=== PATIENT | female | born 1980 | race Caucasian/White ===

== ENCOUNTER 2017-01-08 16:03 | Emergency (ER) | payer OTHER ==
[~2017-01-08] VITALS: Ht 165.1 cm; Wt 74.0 kg
[~2017-01-08 16:03] MED LIST: GLIP5TAB13 PO; MTF1000T PO
[2017-01-08 16:07] VITALS: Ht 165.1 cm; Wt 74.0 kg
[2017-01-08] MEDS ORDERED: AMO500 PO (16:24)
--- NOTE | 2017-01-08 16:31 | ERD ---
ER Documentation Chief Complaint Date/Time DATE: 01/08/17 TIME: 16:27 Chief Complaint Complain sof a sore rhroat x 3 days HPI Patient is a 36-year-old female who thinks she may be getting strep throat as she has had it before. She states that of these symptoms feel similar. She states she has had 3 days of sore throat with associated body aches and chills. Unsure of fever. Admits to nausea no vomiting. No diarrhea. She has been taking Tylenol to control her body aches. She is tolerating oral intake. ROS All systems reviewed and are negative except as per history of present illness. Medications Home Meds Active Scripts Amoxicillin* (Amoxicillin*) 500 Mg Cap, 500 MG PO BID for 7 Days, CAP Prov:ИРИНА XAVIER PA-C 01/08/17 Reported Medications Glipizide* (Glipizide*) 5 Mg Tablet, 1 PO QDAY 01/09/13 Metformin* (Glucophage*) 1,000 Mg Tablet, 1 PO QDAY 01/09/13 Allergies Allergies: Coded Allergies: No Known Allergy (Unverified , 01/08/17) PMhx/Soc History of Surgery: No Hx Miscellaneous Medical Probl: Yes (DIABETES ) Hx Alcohol Use: Yes Hx Substance Use: No Hx Tobacco Use: No Smoking Status: Never smoker FmHx Family History: No diabetes Physical Exam Vitals Vital Signs Date Time Temp Pulse Resp B/P Pulse Ox O2 Delivery O2 Flow Rate FiO2 01/08/17 16:07 98.6 111 20 114/74 97 Physical Exam INITIAL VITAL SIGNS: Reviewed by me GENERAL: Awake, alert and oriented x 4, well appearing, nontoxic, speaking in full sentences. No acute distress HEAD: Atraumatic EAR: No tenderness over the mastoids bilaterally. No exudates in the canals. TMs nonerythematous. NOSE: Normal nose. THROAT: Mild tonsillar erythema and edema, no exudates, uvula midline, no kissing tonsils NECK: Supple. No masses. Full range of motion. No meningismus. No midline tenderness. RESPIRATORY: Clear to auscultation bilaterally. Symmetric chest wall rise. No wheezing or rales. No accessory muscle use. CV: Regular rate and rhythm. No murmurs, rubs, or gallops. Procedures/MDM 36-year-old female presents with sore throat. She is afebrile but tachycardic at 111. He does have red swollen tonsils. She was given a prescription for amoxicillin. I recommend she continue to take Tylenol and/or Motrin at home for pain and fever control. Patient counseled regarding my diagnostic impression and care plan. Prior to discharge all questions answered. Pt agrees with treatment plan and understands strict return precautions. Pt is instructed to follow up with primary care provider within 24-48 hours. Precautionary instructions provided including instructions to return to the ER if not improving or for any worsening or changing symptoms or concerns. Departure Diagnosis: Primary Impression: Pharyngitis Condition: Stable Patient Instructions: Pharyngitis, Strep (Presumed) Additional Instructions: Call your primary care doctor TOMORROW for an appointment during the next 1-2 days.See the doctor sooner or return here if your condition worsens before your appointment time. ИРИНА XAVIER PA-C Jan 08, 2017 16:31
== END 2017-01-08 16:34 | disposition home or self-care (01) ==
LOC: FTE 16:03
DX: J02.9 Acute pharyngitis, unspecified (principal); E11.9 Type 2 diabetes mellitus without complications; Z79.84 Long term (current) use of oral hypoglycemic drugs
CPT/HCPCS: 99283

== ENCOUNTER 2017-01-13 19:13 | Emergency (ER) | payer OTHER ==
[~2017-01-13] VITALS: Ht 160 cm; Wt 75.0 kg
[~2017-01-13 19:13] MED LIST changes: +AMOX500C2 PO
[2017-01-13 19:19] VITALS: Ht 160 cm; Wt 75.0 kg
--- NOTE | 2017-01-13 21:25 | RADRPT ---
PROCEDURE: XR Chest. CLINICAL INDICATION: Cough. TECHNIQUE: Single frontal view of the chest was obtained COMPARISON: 01/09/2013. FINDINGS: The heart and mediastinum are within normal limits. The lungs are clear. There is no pleural effusion or pneumothorax. IMPRESSION: No acute disease. RPTAT: [facility] Physician Martha Date Time Electronically viewed and signed by López Aponte Physician on 01/13/2017 21:25 RS/
[2017-01-13] MEDS ORDERED: BENZ200C43 PO (21:33)
--- NOTE | 2017-01-22 17:22 | ERD ---
ER Documentation Chief Complaint Date/Time DATE: 01/22/17 TIME: 17:15 Chief Complaint Pt reports nasal congestion HPI This patient is a 36-year-old female presenting to the emergency department with complaints of chest pressure, cough, intermittent pain reported. She also reports nasal congestion. Her chest is aching in quality. She took NyQuil which slightly alleviated symptoms. She denies fevers, she is currently taking amoxicillin. ROS All systems reviewed and are negative except as per history of present illness. Medications Home Meds Active Scripts Benzonatate* (Benzonatate*) 200 Mg Capsule, 200 MG PO TID Y for COUGH, #20 CAP Prov:VERÓNICA MAZARIEGOS PA-C 01/13/17 Amoxicillin* (Amoxicillin*) 500 Mg Cap, 500 MG PO BID for 7 Days, CAP Prov:ИРИНА XAVIER PA-C 01/08/17 Reported Medications Glipizide* (Glipizide*) 5 Mg Tablet, 1 PO QDAY 01/09/13 Metformin* (Glucophage*) 1,000 Mg Tablet, 1 PO QDAY 01/09/13 Allergies Allergies: Coded Allergies: No Known Allergy (Unverified , 01/08/17) PMhx/Soc History of Surgery: No Hx Miscellaneous Medical Probl: Yes (DIABETES ) Hx Alcohol Use: Yes Hx Substance Use: No Hx Tobacco Use: No Smoking Status: Light tobacco smoker Physical Exam Physical Exam Const: Nontoxic, well-appearing female in no acute distress. Head: Atraumatic Eyes: Normal Conjunctiva ENT: Normal External Ears, Nose and Mouth. Neck: Full range of motion..~ No meningismus. Resp: Clear to auscultation bilaterally Cardio: Regular rate and rhythm, no murmurs Abd: Soft, non tender, non distended. Normal bowel sounds Skin: No petechiae or rashes Back: No midline or flank tenderness Ext: No cyanosis, or edema Neur: Awake and alert Psych: Normal Mood and Affect Procedures/MDM 36-year-old female presents to the emergency department with complaints of chest pressure and cough. I have low suspicion for acute coronary syndrome. Chest x-ray was negative for acute findings. The patient is already on amoxicillin and may continue taking this medication. Her symptoms are most likely secondary to a viral upper respiratory infection. She is given a prescription for benzonatate. Strict ER return precautions were discussed. Close follow-up with primary care physician was advised. PROCEDURE: XR Chest. CLINICAL INDICATION: Cough. TECHNIQUE: Single frontal view of the chest was obtained COMPARISON: 01/09/2013. FINDINGS: The heart and mediastinum are within normal limits. The lungs are clear. There is no pleural effusion or pneumothorax. IMPRESSION: No acute disease. RPTAT: [facility] Physician Martha Date Time Electronically viewed and signed by López Aponte Physician on 01/13/2017 21:25 Departure Diagnosis: Primary Impression: Cough Condition: Fair Patient Instructions: Cough, Chronic, Uncertain Cause, (Adult) Additional Instructions: Follow up with your PCP within the next 1-3 days for a repeat evaluation. If you require a referral to a specialist, your Primary Care Provider may be able to provide this for you. In most patient cases, a referral is not required. If you have further questions regarding this matter, please ask your Primary Care Provider. Return the the emergency department immediately if symptoms worsen or change. If you have any questions regarding medications, ask your pharmacist or us before you leave. If any adverse reactions, occur while taking your medications, discontinue the treatment and return to the emergency department immediately. If any new or worsening symptoms, uncontrolled fevers, or other unexplained symptoms occur, return to the emergency department immediately. Take your medications as directed, and complete the entire course of treatment. VERÓNICA MAZARIEGOS PA-C Jan 22, 2017 17:22
== END 2017-01-13 22:13 | disposition home or self-care (01) ==
LOC: FTE 19:13
DX: R05 Cough (principal); E11.9 Type 2 diabetes mellitus without complications; F17.210 Nicotine dependence, cigarettes, uncomplicated; Z79.84 Long term (current) use of oral hypoglycemic drugs
CPT/HCPCS: 71010; Z7502

== ENCOUNTER 2017-02-04 18:51 | Emergency (ER) | payer OTHER ==
[~2017-02-04] VITALS: Ht 160 cm; Wt 75.5 kg
[~2017-02-04 18:51] MED LIST changes: +BENZ200C43 PO
[2017-02-04 18:55] VITALS: Ht 160 cm; Wt 75.5 kg
[2017-02-04] MEDS ORDERED: AMOX500C2 PO (19:57)
[2017-02-04] MEDS ORDERED: HYDR-906 PO (19:57)
--- NOTE | 2017-02-04 20:03 | ERD ---
ER Documentation Chief Complaint Date/Time DATE: 02/04/17 TIME: 20:00 Chief Complaint toothache HPI Patient is a 36-year-old female with a past medical history of diabetes who presents to the ED with left tooth pain 1 week. She states that last week there was some drainage from the tooth however she states that it resolved. She states that yesterday she started to develop tooth pain and would like antibiotics. She states that she is planning on going to the dentist next week. She denies fever or chills, difficulty breathing or swallowing. No other complaints. ROS All systems reviewed and are negative except as per history of present illness. Medications Home Meds Active Scripts Hydrocodone/Acetaminophen ([place] 5-325 Tablet) 1 Each Tablet, 1 TAB PO Q6H Y for PAIN, #5 TAB Prov:GENE ESCOBEDO PA-C 02/04/17 Amoxicillin* (Amoxicillin*) 500 Mg Cap, 500 MG PO TID for 7 Days, CAP Prov:GENE ESCOBEDO PA-C 02/04/17 Benzonatate* (Benzonatate*) 200 Mg Capsule, 200 MG PO TID Y for COUGH, #20 CAP Prov:VERÓNICA MAZARIEGOS PA-C 01/13/17 Amoxicillin* (Amoxicillin*) 500 Mg Cap, 500 MG PO BID for 7 Days, CAP Prov:ИРИНА XAVIER PA-C 01/08/17 Reported Medications Glipizide* (Glipizide*) 5 Mg Tablet, 1 PO QDAY 01/09/13 Metformin* (Glucophage*) 1,000 Mg Tablet, 1 PO QDAY 01/09/13 Allergies Allergies: Coded Allergies: No Known Allergy (Unverified , 01/08/17) PMhx/Soc History of Surgery: Yes (cholecystectomy) Anesthesia Reaction: No Hx Neurological Disorder: No Hx Respiratory Disorders: No Hx Cardiac Disorders: No Hx Psychiatric Problems: No Hx Miscellaneous Medical Probl: Yes (DIABETES ) Hx Alcohol Use: Yes (social) Hx Substance Use: No Hx Tobacco Use: No FmHx Family History: No coronary disease, No diabetes, No other Physical Exam Vitals Vital Signs Date Time Temp Pulse Resp B/P Pulse Ox O2 Delivery O2 Flow Rate FiO2 02/04/17 18:55 97.4 99 20 132/80 98 Physical Exam GENERAL: Well-developed, well-nourished female Appears in no acute distress. HEAD: Normocephalic, atraumatic. EYES: Pupils are equally reactive bilaterally. EOMs grossly intact. No conjunctival erythema. ENT: Moist mucous membranes. No uvula deviation. No kissing tonsils. No exudates. no signs of dental abscess NECK: Supple. No lymphadenopathy or thyromegaly. No meningismus. negative kernig. negative brudinski. LUNG: Clear to auscultation bilaterally. No rhonchi, wheezing, rales or coarse breath sounds. HEART: Regular rate and rhythm. No murmurs, rubs or gallops. BACK: No midline tenderness. Extremities: Equal pulses bilaterally. No peripheral clubbing, cyanosis or edema. No unilateral leg swelling. NEUROLOGIC: Alert and oriented. Moving all four extremities. 5/5 strength in all extremities. Normal speech. Steady gait. SKIN: Normal color. Warm and dry. No rashes or lesions. Capillary refill < 2 seconds Procedures/MDM ER COURSE: I kept the patient and/or family informed of laboratory and diagnostic imaging results throughout the emergency room course. MEDICAL DECISION MAKING: This is a 36 year old female who presents with dental pain x 1 day. Vital signs were reviewed. Patient is afebrile. Patient is not hypoxic. Low suspicion for dental abscess. Likely dental pain. Not toxic or ill appearing. DISCHARGE: At this time, patient is stable for discharge and outpatient management with no new complaints during the ER course. Patient was sent home with amoxicillin and [place] and to follow-up with dentist. Information to home center given to patient. Patient will be discharged home with instructions to recheck for new or worsening symptoms such as fever, nausea, weakness, LOC and to follow up with primary care in the next 1-2 days. Patient was advised to return to the ER for any new or worsening symptoms. Plan was discussed and patient and/or family understands and agrees. Home instructions were given. Departure Diagnosis: Primary Impression: Toothache Condition: Stable Patient Instructions: Dental Pain Referrals: [facility] ([facility] walk in clinic) Additional Instructions: Call your primary care doctor TOMORROW for an appointment during the next 1-2 days.See the doctor sooner or return here if your condition worsens before your appointment time. GENE ECSOBEDO PA-C Feb 04, 2017 20:03
== END 2017-02-04 20:06 | disposition home or self-care (01) ==
LOC: FTE 18:51
DX: K08.89 Other specified disorders of teeth and supporting structures (principal); E11.9 Type 2 diabetes mellitus without complications; Z79.84 Long term (current) use of oral hypoglycemic drugs
CPT/HCPCS: 99284

== ENCOUNTER 2017-02-23 02:48 | Emergency (ER) | payer OTHER ==
[~2017-02-23] VITALS: Ht 165.1 cm; Wt 76.0 kg
[~2017-02-23 02:48] MED LIST changes: +HYDR-906 PO
[2017-02-23 02:54] VITALS: Ht 165.1 cm; Wt 76.0 kg
--- NOTE | 2017-02-23 06:16 | RADRPT ---
PROCEDURE: Right elbow. CLINICAL INDICATION: Pain. TECHNIQUE: 3 views including AP, lateral and oblique views of the right elbow were obtained. COMPARISON: None. FINDINGS: There is no fracture, dislocation or bone destruction. The joint spaces are within normal limits. Bone mineralization is within normal limits. There is no radiopaque foreign body or abnormal calcif ication. IMPRESSION: No evidence of fracture. .Vinh Blankenship MD, Date Time Electronically viewed and signed by .Vinh Blankenship MD, on 02/23/2017 06:16 .T/
--- NOTE | 2017-02-23 06:16 | RADRPT ---
PROCEDURE: Left elbow. CLINICAL INDICATION: Pain. TECHNIQUE: Three views including AP, lateral and oblique views of the left elbow were obtained. COMPARISON: None. FINDINGS: There is no fracture, dislocation or bone destruction. The joint spaces are within normal limits. Bone mineralization is within normal limits. There is no radiopaque foreign body or abnormal calcif ication. IMPRESSION: No evidence of fracture. .Vinh Blankenship MD, Date Time Electronically viewed and signed by .Vinh Blankenship MD, on 02/23/2017 06:16 .T/
--- NOTE | 2017-02-23 06:17 | RADRPT ---
PROCEDURE: Left humerus. CLINICAL INDICATION: Pain. TECHNIQUE: Two views of the left humerus. COMPARISON: None. FINDINGS: There is no fracture, dislocation or bone destruction. The joint spaces are within normal limits. Bone mineralization is within normal limits. There is no radiopaque foreign body or abnormal calcif ication. IMPRESSION: Unremarkable left humerus. .Vinh Blankenship MD, MD Date Time Electronically viewed and signed by .Vinh Blankenship MD, on 02/23/2017 06:17 .T/
--- NOTE | 2017-02-23 06:18 | RADRPT ---
PROCEDURE: Left shoulder. CLINICAL INDICATION: Pain. TECHNIQUE: Three views of the left shoulder. COMPARISON: None. FINDINGS: There is no fracture, dislocation or bone destruction. The joint spaces are within normal limits. Bone mineralization is within normal limits. There is no radiopaque foreign body or abnormal calcif ication. IMPRESSION: Unremarkable left shoulder. .Vinh Blankenship MD, MD Date Time Electronically viewed and signed by .Vinh Blankenship MD, on 02/23/2017 06:17 .T/
--- NOTE | 2017-02-23 06:18 | RADRPT ---
PROCEDURE: Right forearm. CLINICAL INDICATION: Pain. TECHNIQUE: Two views including AP and lateral views of the right forearm were obtained. COMPARISON: None. FINDINGS: There is no fracture, dislocation or bone destruction. The joint spaces are within normal limits. Bone mineralization is within normal limits. There is no radiopaque foreign body or abnormal calcif ication. IMPRESSION: No evidence of fracture. .Vinh Blankenship MD, Date Time Electronically viewed and signed by .Vinh Blankenship MD, on 02/23/2017 06:18 .T/
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
[2017-02-23 06:52] VITALS: BP 115/69; PULSE 70; RESP 20; TEMP 96.2
== END 2017-02-23 06:54 | disposition home or self-care (01) ==
LOC: FTE 02:48
DX: M25.512 Pain in left shoulder (principal); M79.622 Pain in left upper arm; M25.521 Pain in right elbow; M79.631 Pain in right forearm; E11.9 Type 2 diabetes mellitus without complications; Z79.84 Long term (current) use of oral hypoglycemic drugs
CPT/HCPCS: 73030; 73060; 73080; 73090; Z7502; 99282

== ENCOUNTER 2017-05-06 15:51 | Emergency (ER) | payer OTHER ==
[~2017-05-06] VITALS: Ht 165.1 cm; Wt 77.0 kg
[2017-05-06 15:53] VITALS: Ht 165.1 cm; Wt 77.0 kg
[2017-05-06] MEDS ORDERED: FLUORESCEIN STRIP RIGHT EYE ONE (16:30)
[2017-05-06] MEDS ORDERED: TETRACAINE 0.5% 4 ML OPH RIGHT EYE ONE (16:30)
[2017-05-06] MEDS ORDERED: DEXAMETHASONE 10 MG/ML 1 ML INJ IM ONE (17:00)
[2017-05-06] MEDS ORDERED: POLY10DR19 RIGHT EYE (17:11)
--- NOTE | 2017-05-06 17:23 | ERD ---
ER Documentation Chief Complaint Chief Complaint woke up with rt eye pain and redness HPI Patient is a 36-year-old female with past medical history of type 2 diabetes, currently on insulin and p.o. meds, who presents ED for concerns of right eye redness and pain. Patient states her symptoms started upon waking up this morning. Patient denies any eye discharge or swelling. Denies any tearing. Patient denies any trauma or falls. Patient denies any possible foreign body. Patient does work at the [employer] [place] and does not wear protective eyewear. Patient wears eyeglasses only, denies any contact lens use. Patient denies any fevers, chills, loss of vision, headache, nausea, vomiting or LOC. She has not seen her eye doctor yet. ROS All systems reviewed and are negative except as per history of present illness. Medications Home Meds Active Scripts Polymyxin B Sulfate-TMP* (Polymyxin B-TMP Eye Drops*) 10 Ml Drops, 1 DROP RIGHT EYE QID for 7 Days, EA Prov:ADAN GARAY PA-C 05/06/17 Hydrocodone/Acetaminophen ([place] 5-325 Tablet) 1 Each Tablet, 1 TAB PO Q6H Y for PAIN, #5 TAB Prov:GENE ESCOBEDO PA-C 02/04/17 Amoxicillin* (Amoxicillin*) 500 Mg Cap, 500 MG PO TID for 7 Days, CAP Prov:GENE ESCOBEDO PA-C 02/04/17 Benzonatate* (Benzonatate*) 200 Mg Capsule, 200 MG PO TID Y for COUGH, #20 CAP Prov:VERÓNICA MAZARIEGOS PA-C 01/13/17 Amoxicillin* (Amoxicillin*) 500 Mg Cap, 500 MG PO BID for 7 Days, CAP Prov:ИРИНА XAVIER PA-C 01/08/17 Reported Medications Glipizide* (Glipizide*) 5 Mg Tablet, 1 PO QDAY 01/09/13 Metformin* (Glucophage*) 1,000 Mg Tablet, 1 PO QDAY 01/09/13 Allergies Allergies: Coded Allergies: No Known Allergy (Unverified , 05/06/17) PMhx/Soc History of Surgery: Yes (cholecystectomy) Anesthesia Reaction: No Hx Neurological Disorder: No Hx Respiratory Disorders: No Hx Cardiac Disorders: No Hx Psychiatric Problems: No Hx Miscellaneous Medical Probl: Yes (DIABETES ) Hx Alcohol Use: Yes (social) Hx Substance Use: No Hx Tobacco Use: No Smoking Status: Never smoker Physical Exam Vitals Vital Signs Date Time Temp Pulse Resp B/P Pulse Ox O2 Delivery O2 Flow Rate FiO2 05/06/17 15:53 98.2 98 18 138/89 98 Physical Exam GENERAL: Well-developed, well-nourished female. Appears in no acute distress. HEAD: Normocephalic, atraumatic. EYE: Visual acuity w/ Snellen eye chart: see visual acuity Normal eye alignment. No orbital swelling or erythema. No proptosis. Pupils equal, round, and reactive to light. EOMs intact. No pain with EOMs. Right conjunctival injection noted. No eye discharge. Anterior chamber clear. No hyphema or hypopion. Fundoscopic exam: Red light reflex present Wood's lamp exam: No foreign bodies, corneal abrasions or ulcerations visualized with fluorescein dye. Negative Rina sign. IOP was R: 18 and L: 20. ENT: Moist mucous membranes. No uvula deviation. No kissing tonsils. LUNG: Clear to auscultation bilaterally. No rhonchi, wheezing, rales or coarse breath sounds. HEART: Regular rate and rhythm. No murmurs, rubs or gallops. EXTREMITIES: Equal pulses bilaterally. No peripheral clubbing, cyanosis or edema. No unilateral leg swelling. NEUROLOGIC: Alert and oriented. Moving all four extremities without any difficulty. Normal speech. Steady gait. SKIN: Normal color. Warm and dry. No rashes or lesions. Results 24 hrs Current Medications Medications (Trade) Dose Ordered Sig/Britni Route PRN Reason Start Time Stop Time Status Last Admin Dose Admin Tetracaine HCl (Tetracaine 0.5% Steri-Unit Elisa) 1 drop ONCE ONCE RIGHT EYE 05/06/17 16:30 05/06/17 16:31 DC Fluorescein Sodium (Yozap-V-Zfoqg) 1 strip ONCE ONCE RIGHT EYE 05/06/17 16:30 17 16:31 DC Dexamethasone (Decadron) 10 mg ONCE ONCE IM 05/06/17 17:00 05/06/17 17:01 DC 05/06/17 16:53 Procedures/MDM MEDICAL DECISION MAKING: Patient is a 36-year-old female presents with right eye redness and pain 1 day. Patient states she woke up with the symptoms. Patient denies any eye discharge or fevers. Patient states her vision is slightly blurry however she denies any vision loss.. Vital signs were reviewed. Patient is afebrile. Patient was not hypoxic. Visual acuity was assessed, see note and interventions. Patient's vision was grossly intact. At this time, patient's presentation is most consistent with conjunctivitis versus uveitis. Patient was given Decadron here. Patient was advised to follow-up with an counseling specialist for further management of her symptoms. Patient may require course of steroid eyedrops however I explained to the patient that she should follow- up with an counseling specialist for this medication. Low suspicion for corneal abrasion, corneal ulcer, retained eye foreign body, glaucoma, retinal detachment , periorbital cellulitis, orbital cellulitis, globe rupture. I discussed case with my supervising physician Dr. Rose who agreed with my medical decision making and treatment plan. Patient was stable at time of discharge. Patient was nontoxic, [id number] prior to discharge. PRESCRIPTIONS: Polytrim eye drops DISCHARGE: At this time, patient is stable for discharge and outpatient management. Supportive measures were discussed with patient including warm/cool compresses. Patient advised not to wear contact lenses or eye makeup. I have instructed the patient to follow-up with his/her primary care physician in 1-2 days. I have discussed with the patient the possibility of needing to see an counseling specialist for further workup if symptoms persist. I have instructed the patient to promptly return to the ER for any new or worsening symptoms including increased pain, fever, swelling, redness, warmth, nausea, vomiting, . The patient and/or family expressed understanding of and agreement with this plan. All questions were answered. Home care instructions were provided. Disclaimer: Inadvertent spelling and grammatical errors are likely due to EHR/ dictation software use and do not reflect on the overall quality of patient care. Also, please note that the electronic time recorded on this note does not necessarily reflect the actual time of the patient encounter. Departure Diagnosis: Primary Impression: Conjunctivitis Conjunctivitis type: unspecified Laterality: right Qualified Code: H10.9 - Conjunctivitis of right eye, unspecified conjunctivitis type Condition: Stable Patient Instructions: What Is Uveitis?, Conjunctivitis, Non-Specific Referrals: [facility] YOU HAVE RECEIVED A MEDICAL SCREENING EXAM AND THE RESULTS INDICATE THAT YOU DO NOT HAVE A CONDITION THAT REQUIRES URGENT TREATMENT IN THE EMERGENCY DEPARTMENT. FURTHER EVALUATION AND TREATMENT OF YOUR CONDITION CAN WAIT UNTIL YOU ARE SEEN IN YOUR DOCTORS OFFICE WITHIN THE NEXT 1-2 DAYS. IT IS YOUR RESPONSIBILITY TO MAKE AN APPOINTMENT FOR FOLOW-UP CARE. IF YOU HAVE A PRIMARY DOCTOR --you should call your primary doctor and schedule an appointment IF YOU DO NOT HAVE A PRIMARY DOCTOR YOU CAN CALL OUR PHYSICIAN REFERRAL HOTLINE AT IF YOU CAN NOT AFFORD TO SEE A PHYSICIAN YOU CAN CHOSE FROM THE FOLLOWING [facility] [address] [facility]. [facility] [address] [facility] [facility] [address] [facility] [facility] [address] [facility] [facility] [address] [facility]. [facility] [address]. [facility] YOU HAVE RECEIVED A MEDICAL SCREENING EXAM AND THE RESULTS INDICATE THAT YOU DO NOT HAVE A CONDITION THAT REQUIRES URGENT TREATMENT IN THE EMERGENCY DEPARTMENT. FURTHER EVALUATION AND TREATMENT OF YOUR CONDITION CAN WAIT UNTIL YOU ARE SEEN IN YOUR DOCTORS OFFICE WITHIN THE NEXT 1-2 DAYS. IT IS YOUR RESPONSIBILITY TO MAKE AN APPOINTMENT FOR FOLOW-UP CARE. IF YOU HAVE A PRIMARY DOCTOR --you should call your primary doctor and schedule and appointment IF YOU DO NOT HAVE A PRIMARY DOCTOR YOU CAN CALL OUR PHYSICIAN REFERRAL HOTLINE AT . IF YOU CAN NOT AFFORD TO SEE A PHYSICIAN YOU CAN CHOSE FROM THE FOLLOWING [facility] INSTITUTIONS: [facility] [address] [place] [address] [facility] [address] [place] [address] [facility] [address] [place] [address] [facility] Hours: Mon - Fri 9:00 AM - 5:00 PM Additional Instructions: Call your primary care doctor/ EYE DOCTOR TOMORROW for an appointment during the next 1-2 days.See the doctor sooner or return here if your condition worsens before your appointment time. ADAN GARAY PA-C May 06, 2017 17:23
== END 2017-05-07 00:04 | disposition home or self-care (01) ==
LOC: FTE 15:51
DX: H10.9 Unspecified conjunctivitis (principal); E11.9 Type 2 diabetes mellitus without complications; Z79.84 Long term (current) use of oral hypoglycemic drugs; Z79.4 Long term (current) use of insulin
CPT/HCPCS: 96372; J1100; Z7502; Z7610

== ENCOUNTER 2017-05-13 13:28 | Emergency (ER) | payer OTHER ==
[~2017-05-13] VITALS: Ht 165.1 cm; Wt 75.8 kg
[~2017-05-13 13:28] MED LIST changes: +POLY10DR19 RIGHT EYE
[2017-05-13 13:32] VITALS: Ht 165.1 cm; Wt 75.8 kg
[2017-05-13 14:31] VITALS: BP 106/77; PULSE 117; RESP 20
--- NOTE | 2017-05-13 14:39 | ERD ---
ER Documentation Chief Complaint Chief Complaint Cough, SOB x 5 days HPI 36-year-old female was a smoker comes to emergency room with a dry cough, sore throat, congestion for 5 days. She states that she is not having any productive cough initially she was, and reports rhinorrhea with this and painful swallowing but no difficulty swallowing. Symptoms began and her family members also began having the same symptoms as well as her coworkers. She denies chest pain. She does feel like she is not able to take a deep breath in or out. ROS All systems reviewed and are negative except as per history of present illness. Medications Home Meds Active Scripts Ibuprofen* (Motrin*) 600 Mg Tab, 600 MG PO Q6, #30 TAB Prov:NATALIA COSTELLO PA-C 05/13/17 Albuterol Sulfate* (Ventolin HFA*) 18 Gm Hfa.aer.ad, 2 PUFF INHALATION Q4H, #1 INHALER Prov:NATALIA COSTELLO PA-C 05/13/17 Polymyxin B Sulfate-TMP* (Polymyxin B-TMP Eye Drops*) 10 Ml Drops, 1 DROP RIGHT EYE QID for 7 Days, EA Prov:ADAN GARAY PA-C 05/06/17 Hydrocodone/Acetaminophen ([place] 5-325 Tablet) 1 Each Tablet, 1 TAB PO Q6H Y for PAIN, #5 TAB Prov:GENE ESCOBEDO PA-C 02/04/17 Amoxicillin* (Amoxicillin*) 500 Mg Cap, 500 MG PO TID for 7 Days, CAP Prov:GENE ESCOBEDO PA-C 02/04/17 Benzonatate* (Benzonatate*) 200 Mg Capsule, 200 MG PO TID Y for COUGH, #20 CAP Prov:VERÓNICA MAZARIEGOS PA-C 01/13/17 Amoxicillin* (Amoxicillin*) 500 Mg Cap, 500 MG PO BID for 7 Days, CAP Prov:ИРИНА XAVIER PA-C 01/08/17 Reported Medications Glipizide* (Glipizide*) 5 Mg Tablet, 1 PO QDAY 01/09/13 Metformin* (Glucophage*) 1,000 Mg Tablet, 1 PO QDAY 01/09/13 Allergies Allergies: Coded Allergies: No Known Allergy (Unverified , 05/06/17) PMhx/Soc History of Surgery: Yes (cholecystectomy) Anesthesia Reaction: No Hx Neurological Disorder: No Hx Respiratory Disorders: No Hx Cardiac Disorders: No Hx Psychiatric Problems: No Hx Miscellaneous Medical Probl: Yes (DIABETES ) Hx Alcohol Use: Yes (social) Hx Substance Use: No Hx Tobacco Use: No Physical Exam Vitals Vital Signs Date Time Temp Pulse Resp B/P Pulse Ox O2 Delivery O2 Flow Rate FiO2 05/13/17 14:31 117 20 106/77 99 Room Air 05/13/17 13:32 97.9 122 20 110/78 99 Physical Exam General: Well-developed, well-nourished. The patient appears in no acute distress. HEENT: Head is normocephalic, atraumatic. No scleral icterus. Pupils are equal , round, and reactive. Oral mucous membranes are moist. No pharyngeal erythema. Neck: Supple. Nontender. Lungs: Clear to auscultation. Normal air movement. Heart: Regular rate and rhythm. S1 and S2 are normal. No murmurs, gallops, or rubs. Abdomen: Soft, nontender, nondistended. Bowel sounds are normoactive. Extremities: No clubbing or cyanosis. Normal pulses. Moving extremities x 4. No weakness. Neurologic: Alert and oriented 3. No focal deficits. Skin: Normal turgor. No rash or lesions. Results 24 hrs DIAGNOSTIC IMAGING REPORT Patient: BENJAMIN CAMACHO : 1980 Age: 36 Sex: F MR #: [id number] DOS: 05/13/17 1426 Ordering MD: NATALIA COSTELLO PA-C Location: [facility] Room/Bed: PROCEDURE: XR Chest. CLINICAL INDICATION: cough congestion TECHNIQUE: Single frontal view of the chest was obtained COMPARISON: CR CHEST 01/13/2017; CR CHEST 01/09/2013 FINDINGS: The heart and mediastinum are within normal limits. The lungs are clear. There is no pleural effusion or pneumothorax. IMPRESSION: No acute pulmonary disease. RPTAT: HRSR Physician Yandel Date Time Electronically viewed and signed by Tad Guzman Physician on 05/13/2017 15 :16 RR/ CC: NATALIA COSTELLO PA-C Procedures/MDM The patient is a 36-year-old female who comes in with an acute upper respiratory infection, presumed viral. Patient's symptoms are most consistent with viral upper respiratory infection, the chest x-ray is normal. No evidence of pneumonia, no pleural effusion, I doubt acute coronary syndrome, dissection or pulmonary embolus. The patient has a differential diagnosis of a viral upper respiratory infection, bacterial upper respiratory infection, bronchitis, pneumonia, pharyngitis, laryngitis, epiglottitis, croup, pneumonia. Patient has a normal pulmonary examination, clear breath sounds, normal pulse oximetry, with no corrective measures needed at this time. Fluids, rest, antipyretics were encouraged. Departure Diagnosis: Primary Impression: Cough NATALIA COSTELLO PA-C May 13, 2017 14:39
--- NOTE | 2017-05-13 15:16 | RADRPT ---
PROCEDURE: XR Chest. CLINICAL INDICATION: cough congestion TECHNIQUE: Single frontal view of the chest was obtained COMPARISON: CR CHEST 01/13/2017; CR CHEST 01/09/2013 FINDINGS: The heart and mediastinum are within normal limits. The lungs are clear. There is no pleural effusion or pneumothorax. IMPRESSION: No acute pulmonary disease. RPTAT: HRSR Physician Yandel Date Time Electronically viewed and signed by Tad Guzman Physician on 05/13/2017 15:16 RR/
[2017-05-13] MEDS ORDERED: ALBU18HF INHALATION (15:52)
[2017-05-13] MEDS ORDERED: IBUP-1542 PO (15:52)
== END 2017-05-13 16:22 | disposition home or self-care (01) ==
LOC: FTE 13:28
DX: J06.9 Acute upper respiratory infection, unspecified (principal); E11.9 Type 2 diabetes mellitus without complications; Z79.84 Long term (current) use of oral hypoglycemic drugs
CPT/HCPCS: 71010

== ENCOUNTER 2017-10-15 20:28 | Emergency (ER) | END 2017-10-15 21:36 | disposition home or self-care (01) ==

== ENCOUNTER 2017-10-24 20:23 | Emergency (ER) | END 2017-10-24 22:18 | disposition home or self-care (01) ==

== ENCOUNTER 2017-11-03 23:18 | Emergency (ER) | END 2017-11-04 05:31 | disposition home or self-care (01) ==